=== PATIENT | male | born 1965 | race Caucasian/White ===

== ENCOUNTER 2019-07-01 12:40 | Day surgery (SDC) | payer BC ==
[~2019-07-01] VITALS: Ht 193 cm; Wt 100.8 kg
[~2019-07-01 12:40] MED LIST: ALBU90OI6 INH; Aspir 8181 MG PO; BUPR150ER PO; CALCA500CH PO; CEPH500 PO; CHOLESTEROL; CYCL10 PO; FENO160 PO; GEMF600 PO; IBUP400 PO; KETO15TC TP; NAPR500 PO; Norco 5-325 Ta1 EACH PO; Nortriptyline H10 MG PO; OMEGA 3-6-9 11200 MG PO; OMEP20ER PO; OMEP40CA12 PO; OXYACE7.5T PO; OXYC5 PO; PENVK500 PO; PRED10 PO; PROM25 PO; Prednisone20 MG PO; VARE1 PO
== END 2019-07-01 15:17 | disposition home or self-care (01) ==
LOC: ORSCSDS 12:40
PROVIDERS: Orthopaedic Surgery
PROC: 3E0R33Z Introduction of Anti-inflammatory into Spinal Canal, Percutaneous Approach (ICD-10-PCS; principal; 2019-07-01 14:30)
DX: M54.16 Radiculopathy, lumbar region (principal); M48.061 Spinal stenosis, lumbar region without neurogenic claudication; G47.30 Sleep apnea, unspecified; E78.00 Pure hypercholesterolemia, unspecified; J44.9 Chronic obstructive pulmonary disease, unspecified; F32.9 Major depressive disorder, single episode, unspecified; F17.210 Nicotine dependence, cigarettes, uncomplicated; Z79.82 Long term (current) use of aspirin; Z79.899 Other long term (current) drug therapy
CPT/HCPCS: J1040

== ENCOUNTER 2019-11-24 06:08 | Day surgery (SDC) | payer BC ==
[~2019-11-24] VITALS: Ht 193 cm; Wt 97.8 kg
--- NOTE | 2019-11-24 07:34 | NUR ---
11/24/19 0734 NOAH MERCADO PRE OP ORDER FOR VANCOMYCIN POWDER FAXED TO PHARMACY.
--- NOTE | 2019-11-24 12:09 | NUR ---
11/24/19 Julito9 MITRA SALDAÑA Strengths 5/5 in BLE. CMS intact, distal pulses present bilaterally. Patient up to chair w/o difficulty. VSS. Tolerating crackers and water. Patient rates pain at 4/10, declines intervention. Daughter at bedside.
== END 2019-11-24 13:25 | disposition home or self-care (01) ==
LOC: ORSCSDS 06:08
PROVIDERS: Orthopaedic Surgery
PROC: 01NB0ZZ Release Lumbar Nerve, Open Approach (ICD-10-PCS; principal; 2019-11-24 07:30)
DX: M48.062 Spinal stenosis, lumbar region with neurogenic claudication (principal); M47.26 Other spondylosis with radiculopathy, lumbar region; J44.9 Chronic obstructive pulmonary disease, unspecified; F17.220 Nicotine dependence, chewing tobacco, uncomplicated
CPT/HCPCS: J0171; J0330; J0690; J2250; J2405; J2704; J3010; J3370; J7120

== ENCOUNTER 2021-01-13 15:24 | Inpatient (IN) | payer OTHER ==
[~2021-01-13] VITALS: Ht 193 cm; Wt 113.6 kg
== END 2021-01-15 11:27 | disposition home or self-care (01) | DRG 440 ==
LOC: ER 15:24 → MEDS 20:26 → ENPENDDIS 01-15 11:24 → MEDS 01-15 11:27
PROVIDERS: ADMIT Family Medicine
PROC: 5A09357 Assistance with Respiratory Ventilation, Less than 24 Consecutive Hours, Continuous Positive Airway Pressure (ICD-10-PCS; principal; 2021-01-13)
DX: K85.90 Acute pancreatitis without necrosis or infection, unspecified (principal); K29.80 Duodenitis without bleeding; Z98.52 Vasectomy status; E78.1 Pure hyperglyceridemia; E80.6 Other disorders of bilirubin metabolism; K76.0 Fatty (change of) liver, not elsewhere classified; G47.33 Obstructive sleep apnea (adult) (pediatric); E11.9 Type 2 diabetes mellitus without complications; F32.9 Major depressive disorder, single episode, unspecified; J45.20 Mild intermittent asthma, uncomplicated; R19.5 Other fecal abnormalities; E66.01 Morbid (severe) obesity due to excess calories; G89.29 Other chronic pain; M54.9 Dorsalgia, unspecified; Z68.29 Body mass index [BMI] 29.0-29.9, adult; F17.210 Nicotine dependence, cigarettes, uncomplicated; Z79.84 Long term (current) use of oral hypoglycemic drugs
CPT/HCPCS: 36415; 51798; 76705; 80053; 81001; 82150; 82247; 82248; 82947; 83690; 83735; 84443; 84478; 85025; 87086; 93005; 93010; 94660; 94762; 96374; 96375; 96376; 99285-25; A9270; J1170; J1650; J2270; J2405; J7030

== ENCOUNTER → 2021-01-13 | Outpatient (CLI) | payer OTHER ==
[~2021-01-13] MED LIST changes: +BASAGLAR K100 UNIT/6; +DOCUZEN 8.6-501 EACH PO; +FLUT1DIS2; +GABA100 PO; +Metformin HCl850 MG PO; +NICO21TP TOP; +NORT10 PO; +SERT25 PO
[2021-01-13 13:54] LABS: BASOPHILS ABSOLUTE AUTO 0.04 K/mm3 (0.00-0.23); BASOPHILS PERCENT AUTO 0 % (0-2); EOSINOPHILS ABSOLUTE AUTO 0.09 K/mm3 (0.00-0.68); EOSINOPHILS PERCENT AUTO 1 % (0-6); Hematocrit 39.6 % (37.0-53.0); Hemoglobin 14.1 g/dL (13.5-17.5); IMMATURE GRAN ABSOLUTE AUTO 0.07 K/mm3 (0.00-0.10); IMMATURE GRAN PERCENT AUTO 1 % (0-1); LYMPHOCYTES ABSOLUTE AUTO 1.69 K/mm3 (0.84-5.20); LYMPHOCYTES PERCENT AUTO 15 % (21-46); MONOCYTES ABSOLUTE AUTO 0.73 K/mm3 (0.16-1.47); MONOCYTES PERCENT AUTO 6 % (4-13); Mean Corpuscular HGB 31.1 pg (26.0-34.0); Mean Corpuscular HGB Conc 35.6 g/dL (31.5-36.5); Mean Corpuscular Volume 87 fL (80-100); Mean Platelet Volume 11.2 fL (9.1-12.4); NEUTROPHILS ABSOLUTE AUTO 8.95 K/mm3 (1.96-9.15); NEUTROPHILS PERCENT AUTO 77 % (41-73); Platelet Count 149 K/mm3 (150-400); RDW Coefficient Variation 12.3 % (11.7-14.2); RDW Standard Deviation 39.5 fL (35.1-46.3); Red Blood Cell Count 4.54 M/mm3 (4.30-5.90); White Blood Cell Count 11.57 K/mm3 (4.00-11.30)
[2021-01-13 14:11] LABS: Alanine Aminotransfer (ALT/SGP 152 U/L (12-78); Albumin, Blood 3.5 g/dL (3.4-5.0); Albumin/Globulin Ratio 0.7 (0.8-1.8); Alk Phos 106 U/L (40-126); Anion Gap 11 mmol/L (6-16); Aspartate Aminotrans (AST/SGOT 90 U/L (12-37); Bilirubin, Total 4.5 mg/dL (0.1-1.0); Blood Urea Nitrogen 18 mg/dL (8-24); Bun/Creatinine Ratio 16.5 (12.0-20.0); CO2, Blood 27 mmol/L (21-32); Calcium, Blood 8.8 mg/dL (8.5-10.1); Chloride, Blood 95 mmol/L (98-108); Creatinine, Blood 1.09 mg/dL (0.60-1.20); Globulin, Blood 4.8 g/dL (2.2-4.0); Glomerular Filtration Rate >60 (60-); Glucose, Blood 192 mg/dL (70-99); Potassium, Blood 4.2 mmol/L (3.5-5.5); Sodium, Blood 133 mmol/L (136-145); Total Protein, Blood 8.3 g/dL (6.4-8.2)
== END | disposition home or self-care (01) ==
LOC: LAB EV 13:49 → LAB SHORT 13:49
PROVIDERS: Physician Assistant
DX: R10.9 Unspecified abdominal pain (principal)
CPT/HCPCS: 80053; 83690; 85025

== ENCOUNTER 2021-02-28 08:10 | Day surgery (SDC) | payer OTHER ==
[~2021-02-28] VITALS: Ht 193 cm; Wt 111.6 kg
[~2021-02-28 08:10] MED LIST changes: +ALBU90OI INH; +GABA800 PO; +GLUCOPHAGE1000 M1 PO; +INSUGL100V SC; +ROSU10TA PO; +Vitamin D2000 UNIT PO
[2021-02-28] MEDS ORDERED: FENO160 PO (08:59)
--- NOTE | 2021-02-28 09:12 | NUR ---
02/28/21 0912 Kami Valles 1ST I.V. ATTEMPT IN RIGHT HAND 2ND I.V. ATTEMPT IN RIGHT WRIST
== END 2021-02-28 10:21 | disposition home or self-care (01) ==
LOC: ORSCSDS 08:10
PROVIDERS: Internal Medicine Gastroenterology
PROC: 0DBK8ZX Excision of Ascending Colon, Via Natural or Artificial Opening Endoscopic, Diagnostic (ICD-10-PCS; principal; 2021-02-28 09:45)
PROC: 0DBM8ZX Excision of Descending Colon, Via Natural or Artificial Opening Endoscopic, Diagnostic (ICD-10-PCS; principal; 2021-02-28 09:45)
PROC: 0DBP8ZX Excision of Rectum, Via Natural or Artificial Opening Endoscopic, Diagnostic (ICD-10-PCS; principal; 2021-02-28 09:45)
DX: Z12.11 Encounter for screening for malignant neoplasm of colon (principal); D12.4 Benign neoplasm of descending colon; D12.2 Benign neoplasm of ascending colon; D12.8 Benign neoplasm of rectum; K57.30 Diverticulosis of large intestine without perforation or abscess without bleeding; K64.8 Other hemorrhoids; E78.5 Hyperlipidemia, unspecified; E66.9 Obesity, unspecified; Z68.30 Body mass index [BMI] 30.0-30.9, adult; Z87.891 Personal history of nicotine dependence; E11.9 Type 2 diabetes mellitus without complications; Z79.82 Long term (current) use of aspirin; Z79.4 Long term (current) use of insulin; Z79.899 Other long term (current) drug therapy
CPT/HCPCS: 82947; 88305; J2704; J7120

== ENCOUNTER → 2022-04-29 | Outpatient (CLI) | payer OTHER | END | disposition home or self-care (01) | LOC: LAB 10:50 → LAB SHORT 10:50 | DX: B35.3 Tinea pedis (principal) | CPT/HCPCS: 87220 ==

== ENCOUNTER 2022-09-10 13:28 | Emergency (ER) | payer OTHER ==
[~2022-09-10] VITALS: Ht 193 cm; Wt 116.1 kg
[2022-09-10] MEDS ORDERED: Percocet 5-3251 EACH PO ×2 (15:04→20:25)
[2022-09-10] MEDS ORDERED: LISI20 PO (15:07)
[2022-09-10 15:23] LABS: BASOPHILS ABSOLUTE AUTO 0.06 K/mm3 (0.00-0.23); BASOPHILS PERCENT AUTO 1 % (0-2); EOSINOPHILS ABSOLUTE AUTO 0.15 K/mm3 (0.00-0.68); EOSINOPHILS PERCENT AUTO 1 % (0-6); Hematocrit 35.5 % (37.0-53.0); IMMATURE GRAN PERCENT AUTO 1 % (0-1); LYMPHOCYTES ABSOLUTE AUTO 3.52 K/mm3 (0.84-5.20); LYMPHOCYTES PERCENT AUTO 32 % (21-46); MONOCYTES ABSOLUTE AUTO 0.58 K/mm3 (0.16-1.47); MONOCYTES PERCENT AUTO 5 % (4-13); Mean Corpuscular Volume 87 fL (80-100); NEUTROPHILS ABSOLUTE AUTO 6.45 K/mm3 (1.96-9.15); NEUTROPHILS PERCENT AUTO 59 % (41-73); Platelet Count 168 K/mm3 (150-400); RDW Coefficient Variation 12.2 % (11.7-14.2); RDW Standard Deviation 39.3 fL (35.1-46.3); Red Blood Cell Count 4.06 M/mm3 (4.30-5.90); White Blood Cell Count 10.86 K/mm3 (4.00-11.30)
[2022-09-10 16:02] LABS: Albumin, Blood 3.6 g/dL (3.4-5.0); Bilirubin, Total 0.4 mg/dL (0.1-1.0); Bun/Creatinine Ratio 19.7 (12.0-20.0); Calcium, Blood 8.2 mg/dL (8.5-10.1); Creatinine, Blood 0.81 mg/dL (0.60-1.20); Globulin, Blood 3.7 g/dL (2.2-4.0); Total Protein, Blood 7.3 g/dL (6.4-8.2)
[2022-09-10 16:03] LABS: Potassium, Blood 4.8 mmol/L (3.5-5.5)
[2022-09-10 16:25] LABS: Hemoglobin 13.3 g/dL (13.5-17.5)
[2022-09-10 16:26] LABS: Mean Corpuscular HGB 32.8 pg (26.0-34.0); Mean Corpuscular HGB Conc 37.5 g/dL (31.5-36.5)
[2022-09-10] MEDS ORDERED: NARCAN4 M1 (20:25)
[2022-09-10] MEDS ORDERED: CYCL10 PO (20:25)
[2022-09-10] MEDS ORDERED: IBUP600 PO (20:25)
== END 2022-09-10 20:36 | disposition home or self-care (01) ==
LOC: ER 13:28
PROVIDERS: Emergency Medicine
DX: S32.019A Unspecified fracture of first lumbar vertebra, initial encounter for closed fracture (principal); S32.029A Unspecified fracture of second lumbar vertebra, initial encounter for closed fracture; S32.039A Unspecified fracture of third lumbar vertebra, initial encounter for closed fracture; S32.049A Unspecified fracture of fourth lumbar vertebra, initial encounter for closed fracture; S16.1XXA Strain of muscle, fascia and tendon at neck level, initial encounter; S70.02XA Contusion of left hip, initial encounter; W17.89XA Other fall from one level to another, initial encounter; J45.909 Unspecified asthma, uncomplicated; E11.9 Type 2 diabetes mellitus without complications; F17.200 Nicotine dependence, unspecified, uncomplicated
CPT/HCPCS: 70450; 71260; 72125; 72141; 74177; 80053; 85025; J1170; J1885; J3360; J7030; Q9967